=== PATIENT | female | born 1955 | race Caucasian/White ===

== ENCOUNTER 2018-03-04 11:01 | Emergency (ER) | payer BC ==
[2018-03-04] MEDS: NAPROXEN 250 MG TAB PO (12:39)
== END 2018-03-04 14:23 | disposition home or self-care (01) ==
LOC: M ED 11:01
DX: S89.91XA Unspecified injury of right lower leg, initial encounter (principal); X50.9XXA Other and unspecified overexertion or strenuous movements or postures, initial encounter; Y92.018 Other place in single-family (private) house as the place of occurrence of the external cause; M17.11 Unilateral primary osteoarthritis, right knee; Z79.899 Other long term (current) drug therapy
CPT/HCPCS: 73564

== ENCOUNTER → 2019-10-24 | Outpatient (CLI) | payer BC ==
[~2019-10-24] MED LIST: EFFE75CA2 PO; LEVO88TA24 PO; MOBI4TAB PO; PRAV40TA2 PO; SPIR50TA4 PO; TELM1TAB35 PO
[2019-10-24 12:25] LABS: APPEARANCE, URINE CLEAR (CLEAR); BACTERIA, URINE AUTO NEGATIVE (NEGATIVE); BILIRUBIN, URINE AUTO NEGATIVE (NEGATIVE); BLOOD, URINE BLOOD NEGATIVE (NEGATIVE); COLOR, URINE YELLOW (YELLOW); GLUCOSE, URINE (UA) AUTO NEGATIVE (NEGATIVE); KETONE, URINE AUTO NEGATIVE (NEGATIVE); LEUKOCYTE ESTERASE, URINE AUTO NEGATIVE (NEGATIVE); NITRITE, URINE AUTO NEGATIVE (NEGATIVE); PROTEIN, URINE AUTO NEGATIVE (NEGATIVE); RBC, URINE AUTO 1 /HPF (0-3); SPECIFIC GRAVITY URINE AUTO 1.017 (1.002-1.035); SQUAMOUS EPITHELIAL CELL UR AU 0 /HPF (0-6); UROBILINOGEN, URINE AUTO 0.2 mg/dL (0.0-2.0); WBC, URINE AUTO 1 /HPF (0-3)
[2019-10-24 12:26] LABS: HEMATOCRIT 40.3 % (36.0-47.0); HEMOGLOBIN 13.4 g/dl (12.0-15.5); MEAN CORPUSCULAR HEMOGLOBIN 30.5 pg (27.0-33.0); MEAN CORPUSCULAR HGB CONC 33.3 g/dl (32.0-36.5); MEAN CORPUSCULAR VOLUME 91.6 fl (80.0-96.0); PLATELET COUNT, AUTOMATED 240 10^3/uL (150-450); WHITE BLOOD COUNT 5.4 10^3/uL (4.0-10.0)
[2019-10-24 13:02] LABS: ALT/SGPT 47 U/L (12-78); BILIRUBIN,TOTAL 0.5 MG/DL (0.2-1.0); BLOOD UREA NITROGEN 18 MG/DL (7-18); CALCIUM LEVEL 9.4 MG/DL (8.8-10.2); CARBON DIOXIDE LEVEL 29 MEQ/L (21-32); CHLORIDE LEVEL 105 MEQ/L (98-107); CHOLESTEROL LEVEL 253 MG/DL (<200); GLOMERULAR FILTRATION RATE > 60.0 (>45); GLUCOSE, FASTING 86 MG/DL (70-100); HDL CHOLESTEROL 121 MG/DL (>40); LDL CHOLESTEROL 121 MG/DL (<100); NON-HDL-C 132 MG/DL; POTASSIUM SERUM 4.4 MEQ/L (3.5-5.1); SODIUM LEVEL 141 MEQ/L (136-145); THYROID STIMULATING HORMONE 0.723 uIU/ML (0.358-3.740); TOTAL PROTEIN 7.3 GM/DL (6.4-8.2); TRIGLYCERIDES LEVEL 55 MG/DL (<150)
[2019-10-24 13:04] LABS: TOTAL 25(OH) VITAMIN D 40.6 NG/ML (30.0-100.0)
--- NOTE | 2019-10-24 13:37 | REP ---
CAROTID ULTRASOUND: Real-time ultrasound evaluation and duplex Doppler interrogation of the extracranial carotid vasculature is performed. There is mild plaquing and narrowing in both carotid bulbs extending into the internal and external carotid arteries. Luminal narrowing is less than 50%. There is no evidence of hemodynamically significant stenosis of either internal carotid artery. Normal flow velocities are seen. The vertebral arteries demonstrate normal direction of flow. RIGHT LEFT Peak systolic velocity ICA 52.6 cm/s 62.4 cm/s End diastolic velocity ICA 14.6 cm/s 25.7 cm/s Peak systolic velocity CCA 86.9 cm/s 87 cm/s Peak systolic velocity ECA 75.6 cm/s 64.7 cm/s ICA/CCA ratio 0.61 0.72 IMPRESSION: Bilateral luminal narrowing of the internal carotid arteries less than 50%. No evidence of hemodynamically significant stenosis. Electronically Signed by Arthur Santos MD 10/24/2019 01:28 P
[2019-10-24 14:02] LABS: HEMOGLOBIN A1c 6.2 %
== END ==
LOC: M RAD 11:36
PROVIDERS: ATTEND Internal Medicine
DX: I65.23 Occlusion and stenosis of bilateral carotid arteries (principal); I10 Essential (primary) hypertension; E03.9 Hypothyroidism, unspecified; E78.5 Hyperlipidemia, unspecified

== ENCOUNTER → 2019-11-26 | Outpatient (CLI) | payer BC ==
--- NOTE | 2020-01-01 10:53 | DEXA ---
AP SPINE L2 - L4 1.768 4.6 6.1 LT FEMUR TOTAL 1.120 0.9 2.0 LT NECK 1.074 0.3 1.7 RT FEMUR TOTAL 1.147 1.1 2.2 RT NECK 1.088 0.4 1.8 TOTAL BODY TOTAL OTHER COMMENTS: Normal Bone Densitometry of the spine and hips. FOLLOW-UP: Recommendation for the next bone density exam: 5 years. CASSI
== END ==
LOC: M WHC 15:40
PROVIDERS: ATTEND Internal Medicine
DX: M81.0 Age-related osteoporosis without current pathological fracture (principal)

== ENCOUNTER → 2020-04-20 | Outpatient (CLI) | payer BC ==
[2020-04-20 14:16] LABS: CALCIUM LEVEL 9.7 MG/DL (8.8-10.2); CHOLESTEROL RISK RATIO 2.351 (<5); CREATININE FOR GFR 1.04 MG/DL (0.55-1.30); GLOMERULAR FILTRATION RATE 56.8 (>45); POTASSIUM SERUM 3.9 MEQ/L (3.5-5.1)
[2020-04-20 14:42] LABS: HEMOGLOBIN A1c 5.4 %
== END ==
LOC: M LAB 13:29
PROVIDERS: ATTEND Internal Medicine
DX: Z00.00 Encounter for general adult medical examination without abnormal findings (principal); E78.5 Hyperlipidemia, unspecified

== ENCOUNTER → 2021-03-11 | Outpatient (CLI) | payer MEDICARE | LOC: M WHC 11:32 | PROVIDERS: ATTEND Obstetrics & Gynecology | DX: Z53.20 Procedure and treatment not carried out because of patient's decision for unspecified reasons (principal) ==

== ENCOUNTER → 2021-04-18 | Outpatient (REF) | LOC: M LABSMTC 09:14 | PROVIDERS: ATTEND Pediatrics | DX: Z20.822 Contact with and (suspected) exposure to COVID-19 (principal) ==

== ENCOUNTER → 2023-12-08 | Outpatient (CLI) | payer MEDICARE, OTHER | LOC: M ONCR 08:35 | PROVIDERS: ATTEND General Practice | DX: C50.412 Malignant neoplasm of upper-outer quadrant of left female breast (principal); Z98.890 Other specified postprocedural states; Z85.820 Personal history of malignant melanoma of skin; Z80.42 Family history of malignant neoplasm of prostate; Z87.891 Personal history of nicotine dependence; Z79.1 Long term (current) use of non-steroidal anti-inflammatories (NSAID); Z79.890 Hormone replacement therapy; Z79.899 Other long term (current) drug therapy ==

== ENCOUNTER 2023-12-29 14:29 | Outpatient (RCR) | payer MEDICARE | END 2023-12-31 | LOC: M ONCR 14:29 | PROVIDERS: ATTEND General Practice | DX: Z51.0 Encounter for antineoplastic radiation therapy (principal); C50.412 Malignant neoplasm of upper-outer quadrant of left female breast ==

== ENCOUNTER 2024-01-27 11:45 | Outpatient (RCR) | payer MEDICARE | END 2024-01-30 | LOC: M ONCR 11:45 | PROVIDERS: ATTEND General Practice | DX: Z51.0 Encounter for antineoplastic radiation therapy (principal); C50.412 Malignant neoplasm of upper-outer quadrant of left female breast ==

== ENCOUNTER → 2024-08-22 | Outpatient (CLI) | payer MEDICARE | LOC: M ONCR 09:44 | PROVIDERS: ATTEND General Practice | DX: Z08 Encounter for follow-up examination after completed treatment for malignant neoplasm (principal); Z85.3 Personal history of malignant neoplasm of breast; R20.0 Anesthesia of skin; Z98.890 Other specified postprocedural states; Z92.3 Personal history of irradiation; Z79.811 Long term (current) use of aromatase inhibitors; Z87.891 Personal history of nicotine dependence; Z79.1 Long term (current) use of non-steroidal anti-inflammatories (NSAID); Z79.899 Other long term (current) drug therapy ==

== ENCOUNTER → 2024-11-30 | Outpatient (CLI) | payer MEDICARE ==
[~2024-11-30] MED LIST changes: -PRAV40TA2 PO; +PRAV40TA85 PO
== END ==
LOC: M PLAIMG 15:19
PROVIDERS: ATTEND Internal Medicine
DX: M17.31 Unilateral post-traumatic osteoarthritis, right knee (principal)

== ENCOUNTER → 2025-02-26 | Outpatient (CLI) | payer MEDICARE | LOC: M ONCR 09:41 | PROVIDERS: ATTEND General Practice | DX: Z08 Encounter for follow-up examination after completed treatment for malignant neoplasm (principal); Z85.3 Personal history of malignant neoplasm of breast; Z98.890 Other specified postprocedural states; Z92.3 Personal history of irradiation; Z79.810 Long term (current) use of selective estrogen receptor modulators (SERMs); Z87.891 Personal history of nicotine dependence; Z79.899 Other long term (current) drug therapy ==